=== PATIENT | female | born 1975 | race Caucasian/White ===

== ENCOUNTER 2023-04-17 17:38 | Emergency (ER) | payer BC ==
[2023-04-17] MEDS ORDERED: HYDROmorphone 1 MG/ML Syringe IVPUSH ONE ×2 (18:26→20:51)
[2023-04-17] MEDS ORDERED: ceFAZolin 2 GM in Sodium Chloride 0.9% 50 ML IV ONE (18:27)
[2023-04-17] MEDS: Sodium Chloride 0.9% 10 ML Syringe FLUSH PRN ×2 (18:31→21:05)
[2023-04-17] MEDS ORDERED: Lidocaine 1% 20 ML MDV INJECT ONE (20:50)
[2023-04-17] MEDS ORDERED: Ibuprofen 800 MG Tab PO ONE (21:26)
== END 2023-04-17 22:08 | disposition home or self-care (01) ==
LOC: JD.ED 17:38
DX: S41.151A Open bite of right upper arm, initial encounter (principal); S51.832A Puncture wound without foreign body of left forearm, initial encounter; Z88.8 Allergy status to other drugs, medicaments and biological substances; W54.0XXA Bitten by dog, initial encounter
CPT/HCPCS: 12002; 73090; 96365; 96375; 96376; 99283; J0690; J1170; J3490